=== PATIENT | female | born 1985 | race Two or more races ===

== ENCOUNTER 2024-09-30 16:21 | Emergency (ER) | payer MEDICAID, OTHER ==
[~2024-09-30] VITALS: Ht 157.5 cm; Wt 93.0 kg
[2024-09-30 16:25] VITALS: TEMP 98
--- NOTE | 2024-09-30 16:43 | ED.PDOC ---
History of Present Illness HPI Comments This is a 38-year-old female without any past medical history presented to the ER via EMS with a complaint of fall and roll over ankle during hiking today at 3 pm. The patient states that during Role over the ankle suddenly she felt pain, cracking sound and swelling of the left ankle was not able to bear weight that prompted this visit. Chief Complaint: Lower Extremity Time Seen by MD: 16:25 Allergies: Coded Allergies: NO KNOWN ALLERGIES (Unverified , 09/30/24) Home Meds Active Scripts Famotidine (PEPCID TABLET) 20 Mg Tb, 1 TAB PO BID for 14 Days, #28 TAB Prov:DRISS CARRASCO RESIDENT 09/30/24 Reported Medications Tramadol Hcl (Tramadol Hcl) 50 Mg Tab, 50 MG PO [id number] PRN for 5 Days, #15 TAB 09/30/24 Information Source: Patient Mode of Arrival: EMS Severity: Moderate Timing: Hours Duration: Since onset Prehospital treatment: None Past Medical History PAST MEDICAL HISTORY: Denies Surgical History (Other): Excision of fibroadenoma of the breast ARCHIVES SPECIALIST History: No Pertinent ARCHIVES SPECIALIST History Family History Family History: Reviewed,noncontributory to illness, No family hx of Cancer, No family hx of DM, No family hx of Heart christina, No family hx of HTN, No family hx ofKidney christina, No family hx of Liver christina, No family hx of Lung christina, No family hx of Stroke Social History Smoker: Non-Smoker Alcohol: Occasionally Drugs: Denies Drug Use Lives In: Home Constitutional: denies: chills, diaphoresis, fatigue, fever, malaise, sweats, weakness, others EENTM: denies: blurred vision, double vision, ear bleeding, ear discharge, ear drainage, ear pain, ear ringing, eye pain, eye redness, hearing loss, mouth pain, mouth swelling, nasal discharge, nose bleeding, nose congestion, nose pain, photophobia, tearing, throat pain, throat swelling, voice changes, others Respiratory: denies: cough, hemoptysis, orthopnea, SOB at rest, shortness of breath, SOB with excertion, stridor, wheezing, others Cardiovascular: denies: chest pain, dizzy spells, diaphoresis, Dyspnea on exertion, edema, irregular heart beat, left arm pain, lightheadedness, palpitations, PND, syncope, others Gastrointestinal: denies: abdomen distended, abdominal pain, blood streaked bowels, constipated, diarrhea, dysphagia, difficulty swallowing, hematemesis, melena, nausea, poor appetite, poor fluid intake, rectal bleeding, rectal pain, vomiting, others Genitourinary: denies: abnormal vagina bleeding, burning, dyspareunia, dysuria, flank pain, frequency, hematuria, incontinence, pain, , vagina discharge, urgency, others Neurological: denies: dizziness, fainting, headache, left sided numbness, left sided weakness, numbness, paresthesia, pre-existing deficit, right sided numbness, right sided weakness, seizure, speech problems, tingling, tremors, weakness, others Musculoskeletal: reports: joint pain, joint swelling; denies: back pain, gout, muscle pain, muscle stiffness, neck pain, others Integumetry: denies: bruises, change in color, change in hair/nails, dryness, laceration, lesions, lumps, rash, wounds, others Allergic/Immunocompromised: denies: Difficulty Healing, Frequent Infections, Hives, Itching, others Hematologic/Lymphatic: denies: anemia, blood clots, easy bleeding, easy bruising, swollen glands, others Endocrine: denies: excessive hunger, excessive sweating, excessive thirst, excessive urination, flushing, intolerance to cold, intolerance to heat, unexplained weight gain, unexplained weight loss, others Psychiatric: denies: anxiety, bipolar disorder, depression, hopeless, panic disorder, schizophrenia, sleepless, suicidal, others Physical Exam General Appearance: Mild Distress HEENT: Normal ENT Inspection, Pharynx Normal, TMs Normal Neck: Full Range of Motion, Non-Tender, Normal, Normal Inspection Respiratory: Chest Non-Tender, Lungs Clear, No Accessory Muscle Use, No Respiratory Distress, Normal Breath Sounds Cardiovascular: No Edema, No JVD, No Murmur, No Gallop, Normal Peripheral Pulses, Regular Rate/Rhythm Breast Exam: Deferred Gastrointestinal: No Organomegaly, Non Tender, No Pulsatile Mass, Normal Bowel Sounds, Soft Genitalia: Deferred Pelvic: Deferred Rectal: Deferred Extremities: Other (Swelling and tenderness of the left ankle) Neurologic: NOT DONE Cerebellar Function: NOT DONE Reflexes: NOT DONE Skin: NOT DONE Peripheral Pulses: 2+ carotid (R), 2+ carotid (L), 2+ femoral (R), 2+ femoral (L), 2+ dorsalis pedis (R), 2+ dorsalis pedis (L), 2+ Radial (R), 2+ Radial (L), 2+ Brachial (R), 2+ Brachial (L) Lymphatic: NOT DONE Was a procedure done? Was a procedure done?: No Differential Dx Considerations may include: Ankle sprain, fracture of the left ankle X-Ray, Labs, Meds, VS Vital Signs Date Time Temp Pulse Resp B/P (MAP) Pulse Ox O2 Delivery O2 Flow Rate FiO2 09/30/24 17:44 86 18 120/79 (93) 98 09/30/24 17:44 86 18 98 Room Air 09/30/24 16:25 98.0 99 18 112/70 99 98.0 Lab Test 09/30/24 18:14 Range/Units Urine Test Negative Negative Current Medications Medications (Trade) Dose Ordered Sig/Caitlin Route Start Time Stop Time Status Last Admin Ketorolac Tromethamine (Toradol Injection) 15 mg ONCE ONCE IV 09/30/24 16:45 09/30/24 16:46 DC 09/30/24 16:45 X-Ray, Labs, Meds, VS Comment EXAMINATIONS: 3 views of the left ankle CLINICAL HISTORY: Pain and swelling in the left ankle COMPARISON: None Findings and impression: Lateral ankle soft tissue swelling. No grossly displaced fractures, dislocations or bony destructive changes are evident on the provided views. Ankle mortise appears intact. Images Reviewed?: Images reviewed and evaluated by me Time of 1ST Reevaluation: 20:00 Reevaluation 1ST: Improved Patient Education/Counseling: Diagnosis, Treatment Family Education/Counseling: Diagnosis, Treatment Comments This is a 38-year-old female without any past medical history presented to the ER via EMS with a complaint of fall and roll over ankle during hiking today at 3 pm. Physical examination revealed tenderness and swelling in the left ankle. The patient was given Toradol 15 mg IV once for pain X-ray of the left ankle demonstrated no fracture, dislocation or any degenerative changes of the left ankle. Discussed with the patient about the findings of the x-ray . Recommended Enrico wrap and advised the patient to use crutches and not to bear weight on the left lower extremity Prescribed tramadol 50 mg Q 8 p.r.n. for pain. The patient was advised to follow up with PCP in 1 week. SEPSIS Sepsis Screen Date sepsis recognized/suspect: Sep 30, 2024 Time Sepsis recognized/suspect: 1625 Recent Procedure: No On Antibiotic Therapy: No Respiratory Rate >20: No Heart Rate >90: Yes Temp<36 C (96.8 F) or >38.3 C: No SBP <90 or MAP <65 mmHG: No New Acute Mental Status Change: No Is the patient on CPAP, BIPAP,: No Physician Orders L Ankle 3 View (09/30/24 16:40) Enrico Wrap: (09/30/24 19:49) Crutches And Crutch Training (09/30/24 19:49) Vital Signs Date Time Temp Pulse Resp B/P (MAP) Pulse Ox O2 Delivery O2 Flow Rate FiO2 09/30/24 17:44 86 18 120/79 (93) 98 09/30/24 17:44 86 18 98 Room Air 09/30/24 16:25 98.0 99 18 112/70 99 98.0 Medications Medications Dose Ordered Sig/Caitlin Route Start Time Stop Time Status Last Admin Dose Admin Ketorolac Tromethamine 15 mg ONCE ONCE IV 09/30/24 16:45 09/30/24 16:46 DC 09/30/24 16:45 Departure 1 Departure Time of Disposition: 19:53 Impression: Primary Impression: Ankle sprain Disposition: 01 HOME / SELF CARE / HOMELESS Condition: Fair e-Prescriptions Famotidine (PEPCID TABLET) 20 Mg Tb 1 TAB PO BID for 14 Days, #28 TAB Prov: DRISS CARRASCO RESIDENT 09/30/24 Critical Care Note Critical Care Time?: No Stability Stability form required: No DRISS CARRASCO RESIDENT Sep 30, 2024 16:43
[2024-09-30] MEDS: KETOROLAC TROMETH 30 MG/ML 1ML VIAL IV ONE (16:45)
[2024-09-30 17:44] VITALS: BP 120/79; PULSE 86; RESP 18; O2SAT 98
--- NOTE | 2024-09-30 19:34 | DVH ---
EXAMINATIONS: 3 views of the left ankle CLINICAL HISTORY: Pain and swelling in the left ankle COMPARISON: None Findings and impression: Lateral ankle soft tissue swelling. No grossly displaced fractures, dislocations or bony destructive changes are evident on the provided views. Ankle mortise appears intact.
[2024-09-30] MEDS ORDERED: TRAM50TA2 PO (19:53)
[2024-09-30] MEDS ORDERED: FAMO20TA10 PO (19:53)
== END 2024-09-30 21:03 | disposition home or self-care (01) ==
LOC: EDBD 16:21 → ER 16:21
DX: S93.492A Sprain of other ligament of left ankle, initial encounter (principal); W18.39XA Other fall on same level, initial encounter; Z98.890 Other specified postprocedural states; Y93.89 Activity, other specified; Y92.89 Other specified places as the place of occurrence of the external cause; Y99.8 Other external cause status
CPT/HCPCS: 73610; 81025; 96374; 99284; J1885